=== PATIENT | female | born 1995 | race Caucasian/White ===

== ENCOUNTER 2016-10-07 15:08 | Emergency (ER) | payer SELFPAY ==
--- NOTE | 2016-10-07 15:49 | ER Document Report ---
ED Syncope and Near Syncope - General Mode of Arrival: Medic Information source: Patient TRAVEL OUTSIDE OF THE U.S. IN LAST 30 DAYS: No - HPI Patient complains to provider of: Fainting Episode witnessed (by whom): Yes - friend Symptoms prior to episode: None Position/Activity at time of episode: Standing Quality of pain: Other - see HPI Context: Other - see HPI Injury location: Head - left ear, Neck Current symptoms: Other - see HPI <LLOYD DUGAN - Last Filed: 10/07/16 17:13> <EZEKIEL ARAIZA - Last Filed: 10/07/16 19:26> - General Chief Complaint: Near Syncope Stated Complaint: POSSIBLE SEIZURE Notes: 21 year old female with no prior medical history presents to the ED via EMS after having a syncopal episode after working out at a gym earlier this afternoon. Patient's friend witnessed the episode and states that the patient was fine before the work out. The friend noticed that the patient was tremulous prior to falling out, heard a thud, and saw the patient on the ground with a mild tremor. The friend propped the patient's head up and she began to come around. Patient had lost consciousness for approximately 30 seconds. Patient was dazed and confused upon waking up, but not in a post-ictal state. Patient reports neck pain, left ear pain, right chest pain, and a possible heart palpation after the fall. Patient denies fecal or urinary incontinence, pain with movement, abdominal pain, shortness of breath, cough, or cold like symptoms. Patient's mother has a history of seizures, but the patient denies ever having a seizure of her own. (LLOYD DUGAN) - Related Data Allergies/Adverse Reactions: No Known Allergies Allergy (Unverified 10/07/16 18:39) Past Medical History - General Information source: Patient - Social History Smoking Status: Unknown if Ever Smoked Family History: Other - Mother has history of seizure Patient has suicidal ideation: No Patient has homicidal ideation: No - Medical History Medical History: Negative Renal/ Medical History: Denies: Hx Peritoneal Dialysis Surgical Hx: Negative <LLOYD DUGAN - Last Filed: 10/07/16 17:13> Review of Systems - Review of Systems Constitutional: No symptoms reported EENT: No symptoms reported Cardiovascular: See HPI, Chest pain - Right, Palpitations, Dizziness Respiratory: No symptoms reported. denies: Cough, Short of breath Gastrointestinal: No symptoms reported. denies: Abdominal pain, Fecal incontinence Genitourinary: No symptoms reported. denies: Incontinence Female Genitourinary: No symptoms reported Musculoskeletal: See HPI, Neck pain, Other - Left ear pain Skin: No symptoms reported Hematologic/Lymphatic: No symptoms reported Neurological/Psychological: See HPI, Confusion - post syncopal episode, Tremor - during syncopal episode -: Yes All other systems reviewed and negative <LLOYD DUGAN - Last Filed: 10/07/16 17:13> Physical Exam - General General appearance: Appears well, Alert In distress: None - HEENT Head: Normocephalic, Atraumatic Eyes: Normal Conjunctiva: Normal Extraocular movements intact: Yes Pupils: PERRL Ears: Normal, Other - TTP over L Mastoid and posterior ear Tympanic membrane: Normal Mouth/Lips: Normal Mucous membranes: Normal, Moist Pharynx: Normal Neck: Normal, Supple, Other - Mild TTP to left lateral neck musculature. No: Lymphadenopathy, Neck mass - Respiratory Respiratory status: No respiratory distress Chest status: Nontender Breath sounds: Normal Chest palpation: Normal - Cardiovascular Rhythm: Regular Heart sounds: Normal auscultation Murmur: No - Abdominal Inspection: Normal Distension: No distension Bowel sounds: Normal Tenderness: Nontender Organomegaly: No organomegaly - Back Back: Normal, Nontender. No: CVA tenderness, Vertebra tenderness - Extremities General upper extremity: Normal inspection, Nontender, Normal color, Normal ROM , Normal temperature General lower extremity: Normal inspection, Nontender, Normal color, Normal ROM , Normal temperature, Normal weight bearing. No: Hayden's sign - Neurological Neuro grossly intact: Yes Cognition: Normal Orientation: AAOx4 Force Coma Scale Eye Opening: Spontaneous Force Coma Scale Verbal: Oriented Kalyn Coma Scale Motor: Obeys Commands Force Coma Scale Total: 15 Speech: Normal Motor strength normal: LUE, RUE, LLE, RLE Additional motor exam normals: Equal chainer Sensory: Normal - Psychological Associated symptoms: Normal affect, Normal mood - Skin Skin Temperature: Warm Skin Moisture: Dry Skin Color: Normal <EZEKIEL ARAIZA - Last Filed: 10/07/16 19:26> - Vital signs Vitals: Temp Pulse Resp BP Pulse Ox 99 F 87 16 127/79 H 99 10/07/16 15:47 03/21/17 15:47 10/07/16 15:47 10/07/16 15:47 10/07/16 15:47 Course <LLOYD DUGAN - Last Filed: 10/07/16 17:13> - Laboratory Result Diagrams: 10/07/16 17:07 10/07/16 17:07 - Diagnostic Test Radiology reviewed: Reports reviewed - EKG Interpretation by Me EKG shows normal: Sinus rhythm, [place], Intervals, QRS Complexes, ST-T Waves <EZEKIEL ARAIZA - Last Filed: 10/07/16 19:26> - Re-evaluation Re-evalutation: 10/07/16 17:14 Nurse informs me that the patient fell after attempting to stand up while getting her X-ray performed. (LLOYD DUGAN) 10/07/16 19:24 Patient is feeling much better. She has been up and around and is having no further dizziness. She is having no discomfort and asking to leave. She is requesting to leave at this point and is hungry to get food. She understands return to emergency Department warnings (EZEKIEL ARAIZA) - Vital Signs Vital signs: Temp Pulse Resp BP Pulse Ox 99 F 68 16 110/76 99 10/07/16 15:47 10/07/16 18:00 10/07/16 15:47 10/07/16 18:00 10/07/16 15:47 - Laboratory Laboratory results interpreted by me: 10/07/16 10/07/16 17:07 17:07 Seg Neutrophils % 82.1 H Lymphocytes % 11.9 L Sodium 145.4 H Calcium 10.8 H 10/07/16 10/07/16 17:07 17:07 Seg Neutrophils % 82.1 H Lymphocytes % 11.9 L Sodium 145.4 H Calcium 10.8 H 10/07/16 19:24 (EZEKIEL ARAIZA) Discharge <LLOYD DUGAN - Last Filed: 10/07/16 17:13> <EZEKIEL ARAIZA - Last Filed: 10/07/16 19:26> - Discharge Clinical Impression: Syncope, Dehydration Disposition: HOME, SELF-CARE Instructions: Dehydration ([facility]), Syncopal Episode ([facility]) Additional Instructions: Return for any problem or concern. Scribe Attestation: 10/07/16 19:23 I personally performed the services described in the documentation, reviewed and edited the documentation which was dictated to the scribe in my presence, and it accurately records my words and actions. (EZEKIEL ARAIZA) Scribe Documentation - Scribe Written by Milton:: Milton Torre, 10/07/2016 1603 acting as scribe for :: Cece <LLOYD DUGAN - Last Filed: 10/07/16 17:13>
[2016-10-07] MEDS ORDERED: NORMAL SALINE 1000 ML 1,000 ML IV ONE (15:52)
[2016-10-07 17:25] LABS: ABSOLUTE LYMPHOCYTES (AUTO) 0.9 10^3/uL (0.5-4.7); ABSOLUTE MONOCYTES (AUTO) 0.4 10^3/uL (0.1-1.4); ABSOLUTE NEUT (AUTO) 6.4 10^3/uL (1.7-8.2); BASOPHILS % (AUTO) 0.4 % (0-2); EOSINOPHILS % (AUTO) 0.1 % (0-6); HEMATOCRIT 37.8 % (36.0-47.0); HEMOGLOBIN 12.6 g/dL (12.0-15.5); LYMPHOCYTES % (AUTO) 11.9 % (13-45); MEAN CORPUSCULAR HEMOGLOBIN 27.6 pg (27.0-33.4); MEAN CORPUSCULAR HGB CONC 33.4 g/dL (32.0-36.0); MEAN CORPUSCULAR VOLUME 83 fl (80-97); MONOCYTES % (AUTO) 5.5 % (3-13); RED BLOOD COUNT 4.57 10^6/uL (3.72-5.28); RED CELL DISTRIBUTION WIDTH 13.8 % (11.5-14.0); SEGMENTED NEUTROPHILS % (AUTO) 82.1 % (42-78); WHITE BLOOD COUNT 7.8 10^3/uL (4.0-10.5)
[2016-10-07 17:44] LABS: ANION GAP 16 (5-19); BLOOD UREA NITROGEN 17 mg/dL (7-20); CALCIUM 10.8 mg/dL (8.4-10.2); CARBON DIOXIDE 25 mmol/L (22-30); CHLORIDE 104 mmol/L (98-107); CREATININE RESULT 0.83 mg/dL (0.52-1.25); GLUCOSE 89 mg/dL (75-110); POTASSIUM 4.3 mmol/L (3.6-5.0); SODIUM 145.4 mmol/L (137-145)
--- NOTE | 2016-10-07 18:28 | EKG REPORT ---
SEVERITY:- NORMAL ECG - SINUS RHYTHM : Confirmed by: Jered Thomas MD 07-Oct-2016 18:27:32
[2016-10-07] MEDS ORDERED: IBUPROFEN 800 MG TABLET PO ONE (18:42)
[2016-10-07 19:45] VITALS: BP 103/61
== END 2016-10-07 19:45 | disposition home or self-care (01) ==
LOC: EDBD 15:08 → ER 15:08
DX: R55 Syncope and collapse (principal); E86.0 Dehydration; M54.2 Cervicalgia; H92.02 Otalgia, left ear; R07.9 Chest pain, unspecified; W19.XXXA Unspecified fall, initial encounter
CPT/HCPCS: 93005; 99284; 36415; 85025; 81025; 80048; 84484; 71010; 93010; J7030

== ENCOUNTER 2016-10-15 13:52 | Emergency (ER) | payer SELFPAY ==
--- NOTE | 2016-10-15 14:00 | ER Document Report ---
ED Medical Screen (RME) - General TRAVEL OUTSIDE OF THE U.[place] IN LAST 30 DAYS: No <KARRI DENNY - Last Filed: 10/15/16 14:03> <FRED CRANE - Last Filed: 10/17/16 05:41> - General Stated Complaint: NEAR SYNCOPE Notes: 21 yo female arrived via EMS for possible syncopal episode today. pt unsure if she lost consciousness. + tilts per EMS. BGL 111 pt reports hx/o recent seizure, evaluated in ED after seizure. denies any seizure activity today. denies injury today admits increased stress recently. + vomiting for past several days presently pt A&Ox 3, c/o headache and numbness to hands and feet. pt is hyperventilating. (KARRI DENNY) - Related Data Allergies/Adverse Reactions: No Known Allergies Allergy (Verified 10/15/16 14:06) Past Medical History Renal/ Medical History: Denies: Hx Peritoneal Dialysis <KARRI DENNY - Last Filed: 10/15/16 14:03> Course - Laboratory Result Diagrams: 10/15/16 14:20 10/15/16 14:20 <FRED CRANE - Last Filed: 10/17/16 05:41> - Vital Signs Vital signs: Temp Pulse Resp BP Pulse Ox 98.0 F 83 12 120/60 100 10/15/16 14:00 10/15/16 14:00 10/15/16 14:00 10/15/16 14:00 10/15/16 14:00 - Laboratory Laboratory results interpreted by me: 10/15/16 10/15/16 14:20 14:20 Hgb 11.1 L Hct 32.9 L Seg Neutrophils % 82.1 H Lymphocytes % 12.7 L Sodium 146.7 H Potassium 3.4 L Glucose 131 H Doctor's Discharge <KARRI DENNY - Last Filed: 10/15/16 14:03> <FRED CRANE - Last Filed: 10/17/16 05:41> - Discharge Disposition: ELOPED
[2016-10-15 14:01] VITALS: BP 120/60
[2016-10-15 14:31] LABS: ABSOLUTE MONOCYTES (AUTO) 0.3 10^3/uL (0.1-1.4); ABSOLUTE NEUT (AUTO) 6.2 10^3/uL (1.7-8.2); BASOPHILS % (AUTO) 0.3 % (0-2); EOSINOPHILS % (AUTO) 0.5 % (0-6); HEMATOCRIT 32.9 % (36.0-47.0); HEMOGLOBIN 11.1 g/dL (12.0-15.5); HGB HCT DIFFERENCE 0.4; LYMPHOCYTES % (AUTO) 12.7 % (13-45); MEAN CORPUSCULAR HEMOGLOBIN 27.4 pg (27.0-33.4); MEAN CORPUSCULAR HGB CONC 33.7 g/dL (32.0-36.0); MEAN CORPUSCULAR VOLUME 81 fl (80-97); MONOCYTES % (AUTO) 4.4 % (3-13); RED BLOOD COUNT 4.05 10^6/uL (3.72-5.28); RED CELL DISTRIBUTION WIDTH 13.3 % (11.5-14.0); SEGMENTED NEUTROPHILS % (AUTO) 82.1 % (42-78); WHITE BLOOD COUNT 7.6 10^3/uL (4.0-10.5)
[2016-10-15 14:56] LABS: ALANINE AMINOTRANSFERASE 19 U/L (9-52); ALBUMIN 4.3 g/dL (3.5-5.0); ALKALINE PHOSPHATASE 70 U/L (38-126); ANION GAP 18 (5-19); ASPARTATE AMINO TRANSFERASE 14 U/L (14-36); BILIRUBIN,DIRECT 0.2 mg/dL (0.0-0.4); BILIRUBIN,TOTAL 0.7 mg/dL (0.2-1.3); BLOOD UREA NITROGEN 12 mg/dL (7-20); CARBON DIOXIDE 22 mmol/L (22-30); CHLORIDE 107 mmol/L (98-107); CREATININE RESULT 0.66 mg/dL (0.52-1.25); GLUCOSE 131 mg/dL (75-110); LIPASE 42.3 U/L (23-300); POTASSIUM 3.4 mmol/L (3.6-5.0); SODIUM 146.7 mmol/L (137-145); TOTAL PROTEIN 7.5 g/dL (6.3-8.2)
== END 2016-10-15 17:38 | disposition left against medical advice (07) ==
LOC: ER 13:52
DX: Z53.9 Procedure and treatment not carried out, unspecified reason (principal); R55 Syncope and collapse; R56.9 Unspecified convulsions; R51 Headache; R20.0 Anesthesia of skin
CPT/HCPCS: 36415; 80053; 81025; 83690; 85025; 99281

== ENCOUNTER 2016-10-29 08:14 | Emergency (ER) | payer SELFPAY ==
--- NOTE | 2016-10-29 09:04 | ER Document Report ---
ED GI/ - General Chief Complaint: Vaginal Bleeding Stated Complaint: VAGINAL BLEEDING Time seen by provider: 09:00 Mode of Arrival: Ambulatory Information source: Patient Notes: 21-year-old female presents to ED for vaginal bleeding for the last 3 days. She states it stopped last night. She states is too soon for her. She took a test and it was positive at home. She she hasn't seen anyone about her yet. She has 2 previous children. Denies any vaginal discharge states she does have some cramping which she does not usually have with her cycle. TRAVEL OUTSIDE OF THE [place] IN LAST 30 DAYS: No - HPI Patient complains to provider of: Vaginal bleeding Onset: Other - Started Thursday stop last night Quality of pain: Cramping Severity at maximum: Mild Severity in ED: Mild Pain Level: 2 Location: Pelvis Vaginal bleeding (Compared to normal period): None LMP: October 04 Exacerbated by: Denies Relieved by: Denies Similar symptoms previously: Yes Recently seen / treated by doctor: No - Related Data Allergies/Adverse Reactions: No Known Allergies Allergy (Verified 10/29/16 08:17) Past Medical History - General Information source: Patient - Social History Smoking Status: Never Smoker Cigarette use (# per day): No Chew tobacco use (# tins/day): No Smoking Education Provided: No Frequency of alcohol use: None Drug Abuse: None Lives with: Family - Children Family History: Arthritis, CAD, CVA, DM, Other - Mother has history of seizure Patient has suicidal ideation: No Patient has homicidal ideation: No - Past Medical History Cardiac Medical History: Reports: None Pulmonary Medical History: Reports: None EENT Medical History: Reports: None Neurological Medical History: Reports: None Endocrine Medical History: Reports: None Renal/ Medical History: Reports: None GI Medical History: Reports: None Musculoskeltal Medical History: Reports None Skin Medical History: Reports None Psychiatric Medical History: Reports: None Traumatic Medical History: Reports: None Infectious Medical History: Reports: None Past Surgical History: Reports: Hx Section - Immunizations Immunizations up to date: No Physical Exam - Vital signs Vitals: Temp Pulse Resp BP Pulse Ox 98.1 F 95 15 127/85 H 98 10/29/16 08:18 10/29/16 08:18 10/29/16 08:18 10/29/16 08:18 10/29/16 08:18 Interpretation: Normal - General General appearance: Appears well, Alert - HEENT Head: Normocephalic, Atraumatic Eyes: Normal Pupils: PERRL - Respiratory Respiratory status: No respiratory distress Chest status: Nontender Breath sounds: Normal Chest palpation: Normal - Cardiovascular Rhythm: Regular Heart sounds: Normal auscultation Murmur: No - Abdominal Inspection: Normal Distension: No distension Bowel sounds: Normal Tenderness: Nontender Organomegaly: No organomegaly - Back Back: Normal, Nontender - Extremities General upper extremity: Normal inspection, Nontender, Normal color, Normal ROM , Normal temperature General lower extremity: Normal inspection, Nontender, Normal color, Normal ROM , Normal temperature, Normal weight bearing. No: Hayden's sign - Neurological Neuro grossly intact: Yes Cognition: Normal Orientation: AAOx4 Kalyn Coma Scale Eye Opening: Spontaneous Kalyn Coma Scale Verbal: Oriented Dafter Coma Scale Motor: Obeys Commands Kalyn Coma Scale Total: 15 Speech: Normal Motor strength normal: LUE, RUE, LLE, RLE Sensory: Normal - Psychological Associated symptoms: Normal affect, Normal mood - Skin Skin Temperature: Warm Skin Moisture: Dry Skin Color: Normal Course - Re-evaluation Re-evalutation: 10/29/16 18:42 Labs and ultrasound discussed with patient. Written reports given to patient to follow-up with her primary doctor. Patient was discharged home - Vital Signs Vital signs: Temp Pulse Resp BP Pulse Ox 98.2 F 78 18 122/68 100 10/29/16 12:03 10/29/16 12:03 10/29/16 12:03 10/29/16 12:03 10/29/16 12:03 - Laboratory Result Diagrams: 10/29/16 09:25 10/29/16 09:25 Laboratory results interpreted by me: 10/29/16 10/29/16 10/29/16 09:25 09:25 09:25 AST 12 L Serum HCG, Qual POSITIVE H Beta HCG, Quant Ur Leukocyte Esterase SMALL H 10/29/16 09:25 AST Serum HCG, Qual Beta HCG, Quant 40.68 H Ur Leukocyte Esterase - Diagnostic Test Radiology reviewed: Image reviewed, Reports reviewed Discharge - Discharge Clinical Impression: Vaginal bleeding before 22 weeks gestation, Pelvic pain affecting in first trimester, antepartum, Bacterial vaginosis UTI (urinary tract infection) Qualifiers: Urinary tract infection type: site unspecified Hematuria presence: without hematuria Qualified Code(s): N39.0 - Urinary tract infection, site not specified Condition: Stable Disposition: HOME, SELF-CARE Additional Instructions: : You are . care is best started as early in as possible. If you're unsure about continuing this , you should discuss this with your physician or with account information clerk at [facility]. You should take only medications approved by your physician. Acetaminophen can safely be taken for minor pains. As a rule, medication for chronic conditions such as asthma or seizures can safely be continued. You should discuss with the physician every medicine you take. Any regular exercise program can be continued. Talk to your physician, however, before engaging in competitive or demanding sports. Alcohol, smoking, and "street drugs" are dangerous to your baby. Cocaine is especially dangerous. Don't use any illicit drugs! BLEEDING DURING EARLY : You have been evaluated for passing blood while . While we take this symptom very seriously, most women with your degree of bleeding will go on to have a perfectly normal baby. At this time, there is no indication that a miscarriage will occur. (A miscarriage occurs when the fetus is abnormal. There is no medicine or treatment to prevent it.) A more serious cause of bleeding is tubal (or ectopic) . An ultrasound usually can show whether the is in the uterus or in the tube. Sometimes in early , no fetus is seen. In this case, careful follow-up, including repeat blood tests and repeat ultrasound, is necessary. Do not douche or have sex for at least a week, or until OK'd by the doctor. Don't use tampons. Call the doctor or return for re-examination if there is an increase in bleeding or cramping, extreme weakness, fainting, new abdominal pain, fever, or passage of tissue. URINARY TRACT INFECTION: Your evaluation indicates that you have a urinary tract infection. This is due to germs growing in the bladder. This is a common problem. This infection usually responds quickly to antibiotics. Your antibiotic should be taken exactly as prescribed. Drink plenty of fluids -- three to four quarts a day. Occasionally, a bladder anesthetic will be prescribed to help stop the feeling of urgency until the antibiotic has a chance to clear the infection. This may cause your urine to be dark orange. Certain urine infections require a culture. If the doctor obtained a culture, the results will be back in two days. You should call to see if a change in treatment is needed. A repeat urinalysis after you finish treatment is often recommended. The physician will let you know if further testing is required. Call the doctor if you develop fever, chills, flank pain, inability to urinate, or blood in the urine. Vaginosis, Bacterial Your exam shows you have bacterial vaginosis. This condition is due to an overgrowth of bacteria in the vagina. Symptoms may include vaginal itching or pain, a smelly discharge, and sometimes burning with urination. Normally this is not transmitted by sexual contact. Vaginosis can be treated with oral or topical antibiotics. Metronidazole ( Flagyl) pills are usually effective. Topical vaginal creams include Cleocin and Metro-Gel. You should avoid sexual contact until your symptoms are all better. Call the doctor if you develop pelvic pain, fever, or problems with urination, or if you don't improve as expected. METRONIDAZOLE: Metronidazole (Flagyl) has been prescribed. This medication is used to kill a type of bacteria called anaerobes, and protozoan parasites such as trichomonas and Giardia. Flagyl often causes a metallic taste in the mouth and mild nausea. Do not use alcohol in any form with Flagyl (including alcohol in medication elixirs). Flagyl interacts with alcohol to cause flushing, palpitations, headache, stomach cramps, and vomiting. Do not use Flagyl if you are taking Antabuse (disulfiram). Call the doctor at once if you develop rash, shortness of breath, itching, or lightheadedness. NITROFURANTOIN (MACRODANTIN, MACROBID): You have received a prescription for nitrofurantoin (Macrodantin). This antibiotic is used for urinary tract infections. Women who are or nursing should notify the physician before taking this medicine. If you have ever had a problem caused by this medication in the past, be sure the physician is aware of it. Common side effects of this medicine include nausea, vomiting, or decreased appetite. Notify your physician if these side effects become severe. Immediately stop this medicine and call the physician if you develop cough , shortness of breath, chest pain, weakness, jaundice (yellow color of the skin and whites of the eyes), or a skin rash. REPEAT BLOOD TEST: At this time, it is uncertain if you have a viable . During the first three months of , the hormone produced from the placenta will steadily rise, usually doubling in value every 2 - 3 days. In order to determine if your is viable and likely be succesful, a repeat of this blood test for the hormone is recommended in 2 - 3 days. An order for this test to be done as an outpatient is being provided. After you have this repeat test done, call your doctor or call us for the results. If the value of the test is increasing as would be expected in a normal , then your is likely to be ok. However, if the value of the test is declining, it will suggest something has happened with your and it will not likely be a successful . Please complete the patient's satisfaction survey if you get one and return. If you do not receive a survey you can go to [facility] website [email or web address] and place your comments about your very good care. Thank you very much. It was a pleasure be in your medical provider today. FOLLOW-UP CARE: If you have been referred to a physician for follow-up care, call the physician s office for an appointment as you were instructed or within the next two days. If you experience worsening or a significant change in your symptoms (very heavy bleeding with large clots of blood, passage of tissue, more severe abdominal / pelvic pain or cramping, feeling faint or severe weakness, fever, etc.), notify the physician immediately or return to the Emergency Department at any time for re-evaluation. OBSTETRIC-GYNECOLOGIC (OB-SURVEYOR OIL WELL DIRECTIONAL) PHYSICIANS IN [place]: [facility] [address] [place] [address] [phone] For active duty and dependents diagnosed with a threatened or miscarriage, you should follow up in the following manner: Standard patients who have a local civilian provider should follow up with that provider. Patients of the Family Practice Clinic should call your Team Nurse at 8: 00 am the following morning for further instructions. If you are neither a Standard patient nor a patient of the Family Practice Clinic, you should follow up at the [facility] ([facility]) . Patients already enrolled in the [facility], Prime patients not assigned to the Family Practice Clinic, and Active Duty patients not assigned to Family Practice Clinic should report to the [facility] at 8:00 am the next morning that the [facility] is open and then you will be seen in the OB Clinic at 11:00 am. Prescriptions: Metronidazole [Flagyl 500 mg Tablet] 500 mg PO BID #14 tablet Nitrofurantoin/Nitrofuran Mac [Macrobid 100 mg Capsule] 1 tab PO BID #20 capsule Forms: Elevated Blood Pressure, Follow-Up Laboratory Testing, Return to Work
[2016-10-29 09:40] LABS: ABSOLUTE EOSINOPHILS # (AUTO) 0.1 10^3/uL (0.0-0.6); ABSOLUTE LYMPHOCYTES (AUTO) 1.3 10^3/uL (0.5-4.7); ABSOLUTE MONOCYTES (AUTO) 0.4 10^3/uL (0.1-1.4); ABSOLUTE NEUT (AUTO) 3.7 10^3/uL (1.7-8.2); BASOPHILS % (AUTO) 0.9 % (0-2); EOSINOPHILS % (AUTO) 2.4 % (0-6); HEMATOCRIT 37.8 % (36.0-47.0); HEMOGLOBIN 12.7 g/dL (12.0-15.5); HGB HCT DIFFERENCE 0.3; LYMPHOCYTES % (AUTO) 23.2 % (13-45); MEAN CORPUSCULAR HGB CONC 33.6 g/dL (32.0-36.0); MEAN CORPUSCULAR VOLUME 80 fl (80-97); MONOCYTES % (AUTO) 6.6 % (3-13); RED CELL DISTRIBUTION WIDTH 13.9 % (11.5-14.0); SEGMENTED NEUTROPHILS % (AUTO) 66.9 % (42-78); WHITE BLOOD COUNT 5.5 10^3/uL (4.0-10.5)
[2016-10-29 09:49] LABS: APPEARANCE,URINE CLOUDY; BILIRUBIN,URINE NEGATIVE (NEGATIVE); GLUCOSE, URINE NEGATIVE (NEGATIVE); KETONES,URINE NEGATIVE (NEGATIVE); LEUKOCYTE ESTERASE,URINE SMALL (NEGATIVE); NITRITE,URINE NEGATIVE (NEGATIVE); PROTEIN,URINE NEGATIVE (NEGATIVE); URINE SPECIFIC GRAVITY 1.019; UROBILINOGEN,URINE NEGATIVE mg/dL (<2.0)
[2016-10-29 09:58] LABS: ALANINE AMINOTRANSFERASE 23 U/L (9-52); ALBUMIN 4.6 g/dL (3.5-5.0); ALKALINE PHOSPHATASE 54 U/L (38-126); ANION GAP 11 (5-19); ASPARTATE AMINO TRANSFERASE 12 U/L (14-36); BILIRUBIN,DIRECT 0.2 mg/dL (0.0-0.4); BILIRUBIN,TOTAL 1.1 mg/dL (0.2-1.3); BLOOD UREA NITROGEN 13 mg/dL (7-20); CALCIUM 10.2 mg/dL (8.4-10.2); CARBON DIOXIDE 25 mmol/L (22-30); CHLORIDE 107 mmol/L (98-107); CREATININE RESULT 0.85 mg/dL (0.52-1.25); GLUCOSE 86 mg/dL (75-110); POTASSIUM 4.3 mmol/L (3.6-5.0); SODIUM 143.1 mmol/L (137-145); TOTAL PROTEIN 7.6 g/dL (6.3-8.2)
[2016-10-29 11:57] LABS: CHLAM PCR NOT DETECTED (NOT DETECT)
[2016-10-29 12:04] VITALS: BP 122/68
== END 2016-10-29 12:04 | disposition home or self-care (01) ==
LOC: ER 08:14
DX: O46.91 Antepartum hemorrhage, unspecified, first trimester (principal); N39.0 Urinary tract infection, site not specified; N76.0 Acute vaginitis; R10.2 Pelvic and perineal pain
CPT/HCPCS: 36415; 76817; 80053; 81001; 84702; 84703; 85025; 86900; 86901; 87210; 87491; 87591; 99284